=== PATIENT | female | born 1990 | race Caucasian/White ===

== ENCOUNTER 2017-11-01 13:14 | Emergency (ER) | payer SELFPAY ==
[~2017-11-01] VITALS: Ht 170.2 cm; Wt 102.0 kg
[~2017-11-01 13:14] MED LIST: ONDA4TAB7 OR; PROZ20CA11 PO; Z.0.BCPILL PO
[2017-11-01 13:19] VITALS: BP 133/71; PULSE 75; RESP 16; TEMP 98.1; O2SAT 98
[2017-11-01] MEDS ORDERED: ORPHENADRINE INJ 60 MG/2 ML AMP IM ONE (13:45)
[2017-11-01] MEDS ORDERED: ROBA500T PO (13:45)
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
== END 2017-11-01 15:00 | disposition home or self-care (01) ==
LOC: PHEFT 13:14
DX: S13.4XXA Sprain of ligaments of cervical spine, initial encounter (principal); S20.219A Contusion of unspecified front wall of thorax, initial encounter; F32.9 Major depressive disorder, single episode, unspecified; V43.52XA Car driver injured in collision with other type car in traffic accident, initial encounter; Z79.899 Other long term (current) drug therapy; Z88.5 Allergy status to narcotic agent
CPT/HCPCS: 72040; 96372; 99284; J2360